=== PATIENT | male | born 2000 | race Caucasian/White ===

== ENCOUNTER 2023-05-20 16:56 | Emergency (ER) | payer SELFPAY, OTHER ==
[2023-05-20] MEDS ORDERED: Ibuprofen 200 MG TAB ONE (17:32)
[2023-05-20] MEDS ORDERED: Acetaminophen 500 MG TAB ONE (17:33)
== END 2023-05-20 17:40 | disposition home or self-care (01) ==
LOC: CSHERS 16:56
DX: M62.830 Muscle spasm of back (principal)
CPT/HCPCS: 99283